=== PATIENT | male | born 1975 | race American Indian/Alaskan Native ===

== ENCOUNTER 2020-01-12 07:37 | Outpatient (CLI) | payer OTHER ==
--- NOTE | 2020-01-12 08:29 | Ultrasound Report ---
LIMITED RUQ ABDOMINAL ULTRASOUND INDICATION: VIRAL HEPATITIS B. COMPARISON: No relevant prior imaging study available. FINDINGS: Pancreas: Visualized portions show no significant abnormality. Abdominal Aorta: No significant abnormality. IVC: No significant abnormality. Liver: The liver measures 14.7 cm in length. No significant abnormality. Normal hepatopedal blood fl ow in the main portal vein. Gallbladder: No significant abnormality. Bile ducts: No significant abnormality. Common bile duct measures 3 mm. Right kidney: No significant abnormality visualized.. Free fluid: None. Additional Findings: None. IMPRESSION: 1. Normal exam. Signer Name: Gaudencio Smiley MD Signed: 01/12/2020 8:25 AM Workstation Name: [id number]
== END 2020-01-12 07:38 | disposition home or self-care (01) ==
LOC: US 07:37
PROVIDERS: ATTEND Student in an Organized Health Care Education/Training Program
DX: B18.1 Chronic viral hepatitis B without delta-agent (principal)
CPT/HCPCS: 76705

== ENCOUNTER 2020-08-21 08:50 | Outpatient (CLI) | payer OTHER ==
--- NOTE | 2020-08-22 08:32 | Ultrasound Report ---
LIMITED RUQ ABDOMINAL ULTRASOUND INDICATION: HEPATITIS B INFECTION. COMPARISON: 01/12/2020. FINDINGS: Pancreas: Visualized portions show no significant abnormality. Abdominal Aorta: No significant abnormality. IVC: No significant abnormality. Liver: The liver measures 13 cm in length. No significant abnormality. Normal hepatopedal blood flow in the main portal vein. Gallbladder: No significant abnormality. Bile ducts: No significant abnormality. Common bile duct measures 2.4 mm. Right kidney: No significant abnormality visualized. Free fluid: None. Additional Findings: None. IMPRESSION: Unremarkable right upper quadrant ultrasound. No significant cirrhotic changes or liver mass is detec franky. No change since 01/12/2020. Signer Name: Joss Childress Jr, MD Signed: 08/22/2020 8:27 AM Workstation Name: [id number]
== END 2020-08-21 08:51 | disposition home or self-care (01) ==
LOC: US 08:50
PROVIDERS: ATTEND Student in an Organized Health Care Education/Training Program
DX: B19.10 Unspecified viral hepatitis B without hepatic coma (principal)
CPT/HCPCS: 76705